=== PATIENT | male | born 1975 | race Caucasian/White ===

== ENCOUNTER 2017-11-19 13:05 | Emergency (ER) | payer OTHER ==
[~2017-11-19] VITALS: Ht 195.6 cm; Wt 93.0 kg
[~2017-11-19 13:05] MED LIST: AMOXICILLIN500 M1 PO; CLARITIN10 MG PO; LAMICTAL100 MG PO; LEXAPRO20 MG PO; NUVIGIL200 MG PO; VYVANSE30 MG PO; WELLBUTRIN XL150 MG PO
[2017-11-19] MEDS ORDERED: MEDROLDOSEPACK PO ×2 (15:01→15:05)
[2017-11-19 15:12] VITALS: BP 116/72
== END 2017-11-19 15:14 | disposition home or self-care (01) ==
LOC: M.ERS 13:05
DX: F31.9 Bipolar disorder, unspecified (principal); F90.9 Attention-deficit hyperactivity disorder, unspecified type

== ENCOUNTER → 2020-01-11 | Outpatient (CLI) | payer OTHER ==
[~2020-01-11] MED LIST changes: +MEDROLDOSEPACK PO
== END ==
LOC: M.RAD 16:43
PROVIDERS: ATTEND Nurse Practitioner Family
DX: R05 Cough (principal); R06.02 Shortness of breath; M41.84 Other forms of scoliosis, thoracic region